=== PATIENT | male | born 1960 | race Caucasian/White ===

== ENCOUNTER → 2024-10-18 | Outpatient (CLI) | payer MEDICARE ==
--- NOTE | 2024-10-20 12:07 | MR ---
EXAMINATION TYPE: MR cspine/tspine wo con DATE OF EXAM: 10/18/2024 9:52 AM COMPARISON: 09/26/2024. CLINICAL INDICATION: Male, 63 years old with history of M62.81 MUSCLE WEAKNESS G95.9 DISEASE OF SPINA L COR; PHH, Neck and mid back pain extending into willian upper extremities TECHNIQUE: Multi planar, multi sequence imaging was performed utilizing: T1-weighted, T2-weighted, a nd turbo inversion recovery imaging of the cervical and thoracic spine. IV Contrast: mL (None, if empty) FINDINGS: CERVICAL: Alignment: The cervical vertebral bodies have preserved heights. Alignment is within normal limits gi rosalba patient positioning. Bones: Scattered Modic endplate changes with osteophytes and disc space narrowing. Multilevel degener ative disc disease is noted and most pronounced at the C3-C7 vertebral levels. Cord: The spinal cord is unremarkable with regards to their signal intensity and morphology. Discs: Multilevel disc desiccation is present. C2-C3: A disc osteophyte complex is present which indents upon the anterior spinal cord with moderate spinal canal stenosis. Bilateral facet and uncovertebral joint arthropathy are present with mild bi lateral neural foraminal stenosis. C3-C4: A disc osteophyte complex is present which minimally narrows the ventral subarachnoid space. Bilateral facet and uncovertebral joint arthropathy are present with moderate bilateral neural erica inal stenosis. C4-C5: A disc osteophyte complex is present with mild spinal canal stenosis. Bilateral facet and unc overtebral joint arthropathy are present with moderate bilateral neural foraminal stenosis. C5-C6: A disc osteophyte complex in the left central region impresses upon the spinal cord with mild to moderate spinal canal stenosis. Bilateral facet and uncovertebral joint arthropathy are present w ith moderate bilateral neural foraminal stenosis. C6-C7: A disc osteophyte complex is present with mild spinal canal stenosis. Bilateral facet and unc overtebral joint arthropathy are present with mild bilateral neural foraminal stenosis. C7-T1: No significant disc pathology. The spinal canal is patent. Bilateral facet and uncovertebral joint arthropathy are present with moderate right and mild left neural foraminal stenosis. THORACIC: T7-T8 disc protrusion which impresses upon the spinal cord. No significant spinal canal or neural foraminal stenosis. No evidence significant spinal canal or neural foraminal stenosis. Spinal cord is within normal limits Other: None. IMPRESSION: 1. T7-T8 disc protrusion which impresses upon the spinal cord. No significant spinal canal or neural foraminal stenosis. 2. Moderate to severe degeneration changes of the cervical spine. No evidence for spinal fracture 3. C5-C6 osteophyte impressing upon the spinal cord with mild to moderate spinal canal stenosis. 4. C2-C3 Central osteophyte impressing upon the spinal cord with moderate spinal canal stenosis [facility], , 10/20/2024 12:05 PM
== END | disposition home or self-care (01) ==
LOC: RADMRIMAIN 08:35
PROVIDERS: ATTEND Orthopaedic Surgery
DX: M48.02 Spinal stenosis, cervical region (principal); M54.16 Radiculopathy, lumbar region; M50.30 Other cervical disc degeneration, unspecified cervical region; M51.24 Other intervertebral disc displacement, thoracic region; G95.9 Disease of spinal cord, unspecified; M25.78 Osteophyte, vertebrae
CPT/HCPCS: 72141; 72146